=== PATIENT | female | born 1990 | race Caucasian/White ===

== ENCOUNTER 2020-03-25 19:37 | Emergency (ER) | payer SELFPAY ==
--- NOTE | 2020-03-25 20:04 | ER Document Report ---
ED Cardiac - General Chief Complaint: Palpitations Stated Complaint: PALPITATIONS Time Seen by Provider: 03/25/20 19:47 Primary Care Provider: PRIYANKA CONTRERAS MD [ACTIVE STAFF] - Follow up as needed Notes: CHIEF COMPLAINT: Palpitations HPI: 29-year-old female presenting to the emergency department complaining of p alpitations that occurred for approximately 30 to 45 minutes. Patient was driving with her on the way to [place] and felt like her heartbeat became very fast. She states she had some shortness of breath with this. No active chest pain. Symptoms have improved at this point she does describe perioral numbness and numbness and tingling in both hands and feet bilaterally during her symptoms. No vision change or loss. No unilateral weakness. No incontinence of urine or bowel. Denies . States she has had this happen to her in the past but never for such a lengthy period of time ROS: See HPI - all other systems were reviewed and are otherwise negative Constitutional: no fever Eyes: no drainage, no blurred vision ENT: no runny nose, no sore throat Cardiovascular: + chest pain Resp: + SOB, no cough GI: no vomiting, no diarrhea, no abdominal pain : no dysuria Integumentary: no rash Allergy: no hives Musculoskeletal: no extremity pain or swelling Neurological: + numbness/tingling, no weakness MEDICATIONS: I agree with the patient medications as charted by the RN. ALLERGIES: I agree with the allergies as charted by the RN. PAST MEDICAL HISTORY/PAST SURGICAL HISTORY: Reviewed and agree as charted by RN. SOCIAL HISTORY: Reviewed and agree as charted by RN. FAMILY HISTORY: No significant familial comorbid conditions directly related to patient complaint EXAM: Reviewed vital signs as charted by RN. CONSTITUTIONAL: Alert and oriented and responds appropriately to questions. Well-appearing; well-nourished HEAD: Normocephalic; atraumatic EYES: PERRL; Conjunctivae clear, sclerae non-icteric ENT: normal nose; no rhinorrhea; moist mucous membranes; pharynx without lesions noted, no uvula edema or deviation, no tonsillar hypertrophy, phonation normal NECK: Supple without meningismus; non-tender; no cervical lymphadenopathy, no masses CARD: RRR; no murmurs, no clicks, no rubs, no gallops; symmetric distal pulses RESP: Normal chest excursion without splinting or tachypnea; breath sounds clear and equal bilaterally; no wheezes, no rhonchi, no rales, pulse oximetry 99% on room air not hypoxic ABD/GI: Normal bowel sounds; non-distended; soft, non-tender, no rebound, no guarding; no palpable organomegaly or masses. BACK: The back appears normal and is non-tender to palpation, there is no CVA tenderness EXT: Normal ROM in all joints; non-tender to palpation; no cyanosis, no effusions, no edema SKIN: Normal color for age and race; warm; dry; good turgor; no acute lesions noted NEURO: Moves all extremities equally; Motor and sensory function intact PSYCH: The patient's mood and manner are appropriate. Grooming and personal hygiene are appropriate. MDM: 29-year-old female with palpitations and sensation of her heart beating quickly this afternoon. Had some perioral numbness and tingling as well as in bilateral hands and feet. Symptoms are improving or resolved at this time. Will check basic screening labs, EKG normal sinus rhythm without ectopy. TRAVEL OUTSIDE OF THE [place] IN LAST 30 DAYS: No - Related Data Allergies/Adverse Reactions: No Known Allergies Allergy (Unverified 03/04/12 13:02) Home Medications: none Past Medical History - Social History Smoking Status: Never Smoker Frequency of alcohol use: None Drug Abuse: None Family History: Reviewed & Not Pertinent Patient has homicidal ideation: No - Immunizations Hx Diphtheria, Pertussis, Tetanus Vaccination: Yes - 02/05/13 Physical Exam - Vital signs Vitals: Temp 98.4 F 03/25/20 19:37 Course - Re-evaluation Re-evalutation: 03/25/20 20:40 I manually rechecked the patient's blood pressure myself. Patient's blood pressure was 142/98. Still mildly elevated. I spoke with the patient at length about hypertension. Awaiting her lab results. 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 She has no chest pain. She does state that the symptoms lasted for over half an hour when they occurred. Discussed with Dr. heart attending. Will obtain second troponin likely a troponin leak if patient truly had SVT, she has absolutely no chest discomfort no EKG changes to suggest ACS at this time. Discussed this at length with the patient who is in agreement with this plan 03/25/20 23:[address] heart attending, troponin is essentially unchanged she remains completely pain-free at this time will refer to Dr. Waggoner cardiology for further follow-up of her blood pressure and possible arrhythmia - Vital Signs Vital signs: Temp Pulse Resp BP Pulse Ox 98.3 F 106 H 16 142/98 H 98 03/25/20 19:53 03/25/20 19:53 03/25/20 19:53 03/25/20 20:42 03/25/20 19:53 - Laboratory Result Diagrams: 03/25/20 19:47 03/25/20 19:47 Laboratory results interpreted by me: 03/25/20 19:47 BUN 23 H Glucose 131 H Discharge - Discharge Clinical Impression: Palpitations Hypertension Qualifiers: Hypertension type: unspecified Qualified Code(s): I10 - Essential (primary) hypertension Condition: Stable Disposition: HOME, SELF-CARE Additional Instructions: Obtain a blood pressure cuff for the wrist to use at home. Measure your blood pressure twice daily and record her findings bring to a primary care provider or to cardiology to further evaluate your blood pressure as discussed. Call the cardiology office tomorrow to discuss further follow-up in the office for reevaluation of the possible arrhythmia or abnormal heart rate. It is possible that you will need to wear a Holter monitor. Return for any recurrent symptoms or onset of chest pain or shortness of breath Referrals: PRIYANKA CONTRERAS MD [ACTIVE STAFF] - Follow up as needed JANEEN WAGGONER MD [ACTIVE PROVISIONAL STAFF] - Follow up as needed
[2020-03-25 20:08] LABS: ABSOLUTE EOSINOPHILS # (AUTO) 0.1 10^3/uL (0.0-0.6); ABSOLUTE LYMPHOCYTES (AUTO) 2.7 10^3/uL (0.5-4.7); ABSOLUTE MONOCYTES (AUTO) 0.6 10^3/uL (0.1-1.4); ABSOLUTE NEUT (AUTO) 4.4 10^3/uL (1.7-8.2); BASOPHILS % (AUTO) 0.6 % (0-2); EOSINOPHILS % (AUTO) 1.3 % (0-6); HEMATOCRIT 43.2 % (36.0-47.0); HEMOGLOBIN 15.2 g/dL (12.0-15.5); LYMPHOCYTES % (AUTO) 34.3 % (13-45); MEAN CORPUSCULAR HEMOGLOBIN 32.4 pg (27.0-33.4); MEAN CORPUSCULAR HGB CONC 35.3 g/dL (32.0-36.0); MEAN CORPUSCULAR VOLUME 92 fl (80-97); MONOCYTES % (AUTO) 7.3 % (3-13); PLATELET COUNT 219 10^3/uL (150-450); SEGMENTED NEUTROPHILS % (AUTO) 56.5 % (42-78); TOTAL CELLS COUNTED % (AUTO) 100 %; WHITE BLOOD COUNT 7.8 10^3/uL (4.0-10.5)
[2020-03-25 20:30] LABS: ALBUMIN 4.9 g/dL (3.5-5.0); ALKALINE PHOSPHATASE 83 U/L (38-126); ANION GAP 11 (5-19); ASPARTATE AMINO TRANSFERASE 26 U/L (14-36); BILIRUBIN,TOTAL 0.4 mg/dL (0.2-1.3); BLOOD UREA NITROGEN 23 mg/dL (7-20); CALCIUM 9.8 mg/dL (8.4-10.2); CARBON DIOXIDE 23 mmol/L (22-30); CHLORIDE 104 mmol/L (98-107); GLUCOSE 131 mg/dL (75-110); POTASSIUM 3.9 mmol/L (3.6-5.0); TOTAL PROTEIN 7.8 g/dL (6.3-8.2)
--- NOTE | 2020-03-25 20:47 | RADIOLOGY REPORT (SQ) ---
EXAM DESCRIPTION: X-ray, single frontal view of the chest CLINICAL HISTORY: 29 years Female, palpitations COMPARISON: None. FINDINGS: Lungs: Lungs are clear. No pneumonia or edema. No pneumothorax or pleural effusion. Mediastinum: Cardiac and mediastinal silhouette are normal. Bones: Osseous structures are normal. IMPRESSION: Unremarkable single view of the chest.
[2020-03-26 00:53] VITALS: BP 172/98
--- NOTE | 2020-03-26 08:02 | EKG REPORT ---
SEVERITY:- ABNORMAL ECG - SINUS RHYTHM PROBABLE LEFT ATRIAL ABNORMALITY LEFT VENTRICULAR HYPERTROPHY : Confirmed by: Sheela Lynn MD 26-Mar-2020 08:02:03
== END 2020-03-26 00:53 | disposition home or self-care (01) ==
LOC: ER 19:37
DX: R00.2 Palpitations (principal); I10 Essential (primary) hypertension; R06.02 Shortness of breath; R20.0 Anesthesia of skin; R07.9 Chest pain, unspecified
CPT/HCPCS: 36415; 71045; 80053; 83735; 84443; 84484; 84703; 85025; 93005; 93010; 99285

== ENCOUNTER 2020-03-30 23:18 | Emergency (ER) | payer SELFPAY ==
[2020-03-31] MEDS ORDERED: ACETAMINOPHEN 325 MG TABLET PO ONE (00:06)
[2020-03-31] MEDS ORDERED: AMLODIPINE BESYLATE 5 MG TABLET PO ONE (04:58)
--- NOTE | 2020-03-31 05:04 | ER Document Report ---
ED Hip Pain/Injury - General Chief Complaint: Hip Pain Stated Complaint: HIP PAIN Time Seen by Provider: 03/31/20 04:46 Notes: CHIEF COMPLAINT: Intermittent back pain over the last for 5 days HPI: 29-year-old obese female presenting to the emergency department complaining of continued hypertension as well as cramping discomfort in the bilateral posterior thighs over the last 5 days. Patient states she was seen here 5 days ago for palpitations. Did not have any chest pain or shortness of breath per se. Patient states that she has had intermittent headaches when she wakes up in the morning and has noticed her blood pressure is still high with a diastolic above 100. She has no active chest pain or shortness of breath. No abdominal pain. Does report some occasional low back discomfort along with the cramping in the posterior thighs. No incontinence of urine or bowel. No ripping or tearing sensation. Patient states that Tylenol tonight did make her symptoms improved significantly ROS: See HPI - all other systems were reviewed and are otherwise negative Constitutional: no fever Eyes: no drainage, no blurred vision ENT: no runny nose, no sore throat Cardiovascular: no chest pain Resp: no SOB, no cough GI: no vomiting, no diarrhea, no abdominal pain : no dysuria Integumentary: no rash Allergy: no hives Musculoskeletal: + extremity pain or swelling Neurological: no numbness/tingling, no weakness MEDICATIONS: I agree with the patient medications as charted by the RN. ALLERGIES: I agree with the allergies as charted by the RN. PAST MEDICAL HISTORY/PAST SURGICAL HISTORY: Reviewed and agree as charted by RN. SOCIAL HISTORY: Reviewed and agree as charted by RN. FAMILY HISTORY: No significant familial comorbid conditions directly related to patient complaint EXAM: Reviewed vital signs as charted by RN. CONSTITUTIONAL: Alert and oriented and responds appropriately to questions. Well-appearing; well-nourished HEAD: Normocephalic; atraumatic EYES: PERRL; Conjunctivae clear, sclerae non-icteric ENT: normal nose; no rhinorrhea; moist mucous membranes; pharynx without lesions noted, no uvula edema or deviation, no tonsillar hypertrophy, phonation normal NECK: Supple without meningismus; non-tender; no cervical lymphadenopathy, no masses CARD: RRR; no murmurs, no clicks, no rubs, no gallops; symmetric distal pulses RESP: Normal chest excursion without splinting or tachypnea; breath sounds clear and equal bilaterally; no wheezes, no rhonchi, no rales, pulse oximetry 98% on room air not hypoxic ABD/GI: Normal bowel sounds; non-distended; soft, non-tender, no rebound, no guarding; no palpable organomegaly or masses. BACK: The back appears normal and is minimally tender over the lumbar musculatu re and upper gluteal region on palpation and range of motion, there is no CVA tenderness EXT: Normal ROM in all joints; non-tender to palpation; no cyanosis, no effusions, no edema SKIN: Normal color for age and race; warm; dry; good turgor; no acute lesions noted NEURO: Moves all extremities equally; Motor and sensory function intact PSYCH: The patient's mood and manner are appropriate. Grooming and personal hygiene are appropriate. MDM: 29-year-old female presenting with cramping in the posterior thighs intermittently over the last for 5 days. She has noticed continued hypertension since her prior visit to the emergency department states she cannot get into cardiology for another week. Patient was seen 5 days ago for possible palpitations or SVT. She has no chest pain or shortness of breath with this. No abdominal pain or palpable masses in the abdomen. Patient did have normal creatinine on last visit we will recheck given her continued hypertension. Will start patient on Norvasc given the hypertension will have nursing recheck her vital signs here and notify me of abnormalities. TRAVEL OUTSIDE OF THE [place] IN LAST 30 DAYS: No - Related Data Allergies/Adverse Reactions: No Known Allergies Allergy (Verified 03/30/20 23:59) Past Medical History - Social History Smoking Status: Current Every Day Smoker Frequency of alcohol use: Heavy Drug Abuse: None Family History: Reviewed & Not Pertinent Patient has homicidal ideation: No - Immunizations Hx Diphtheria, Pertussis, Tetanus Vaccination: Yes - 02/05/13 Physical Exam - Vital signs Vitals: Temp Pulse Resp BP Pulse Ox 97.7 F 102 H 18 162/115 H 99 03/30/20 23:22 03/30/20 23:22 03/30/20 23:22 03/30/20 23:22 03/30/20 23:22 Course - Re-evaluation Re-evalutation: 03/31/20 06:19 Patient blood pressure is much improved. She has no abdominal pain or chest pain on exam at this time. Her lab work does not show significant abnormalities. Will discharge home keep patient on Norvasc 2.5 mg, she will continue to check her pressures follow-up with cardiology and PCP. Discussed with Dr. Daugherty, attending during work up 03/31/20 06:20 Patient urine did show moderate white cells but there were significant squamous epithelial cells as well likely a dirty catch. We will add urine culture. She has no fever and no dysuria - Vital Signs Vital signs: Temp Pulse Resp BP Pulse Ox 97.7 F 102 H 18 152/94 H 99 03/30/20 23:59 03/30/20 23:22 03/30/20 23:22 03/31/20 05:26 03/30/20 23:22 - Laboratory Result Diagrams: 03/31/20 05:31 03/31/20 05:31 Laboratory results interpreted by me: 03/31/20 05:31 Urine Protein 30 H Ur Leukocyte Esterase SMALL H Discharge - Discharge Clinical Impression: Bilateral thigh pain HTN (hypertension) Qualifiers: Hypertension type: essential hypertension Qualified Code(s): I10 - Essential (primary) hypertension Condition: Stable Disposition: HOME, SELF-CARE Instructions: High Blood Pressure, Requiring Treatment ([facility]) Additional Instructions: Continue to check your blood pressures as previously discussed. Take the Norvasc as prescribed you are already given today's dose. Follow-up with cardiology and PCP for reevaluation of symptoms call for appointment. Return for any concerns Prescriptions: Amlodipine Besylate [Norvasc 2.5 mg Tablet] 2.5 mg PO DAILY #30 tablet
[2020-03-31 05:53] LABS: ABSOLUTE EOSINOPHILS # (AUTO) 0.1 10^3/uL (0.0-0.6); ABSOLUTE LYMPHOCYTES (AUTO) 2.8 10^3/uL (0.5-4.7); ABSOLUTE MONOCYTES (AUTO) 0.7 10^3/uL (0.1-1.4); ABSOLUTE NEUT (AUTO) 3.8 10^3/uL (1.7-8.2); BASOPHILS % (AUTO) 0.5 % (0-2); EOSINOPHILS % (AUTO) 1.7 % (0-6); HEMATOCRIT 42.8 % (36.0-47.0); HEMOGLOBIN 14.9 g/dL (12.0-15.5); LYMPHOCYTES % (AUTO) 37.7 % (13-45); MEAN CORPUSCULAR HEMOGLOBIN 32.5 pg (27.0-33.4); MEAN CORPUSCULAR HGB CONC 34.9 g/dL (32.0-36.0); MEAN CORPUSCULAR VOLUME 93 fl (80-97); MONOCYTES % (AUTO) 9.9 % (3-13); PLATELET COUNT 228 10^3/uL (150-450); RED BLOOD COUNT 4.58 10^6/uL (3.72-5.28); SEGMENTED NEUTROPHILS % (AUTO) 50.2 % (42-78); TOTAL CELLS COUNTED % (AUTO) 100 %; WHITE BLOOD COUNT 7.5 10^3/uL (4.0-10.5)
[2020-03-31 06:04] LABS: APPEARANCE,URINE CLOUDY; BILIRUBIN,URINE NEGATIVE (NEGATIVE); COLOR,URINE AMBER; GLUCOSE, URINE NEGATIVE (NEGATIVE); KETONES,URINE NEGATIVE (NEGATIVE); LEUKOCYTE ESTERASE,URINE SMALL (NEGATIVE); NITRITE,URINE NEGATIVE (NEGATIVE); PROTEIN,URINE 30 mg/dL (NEGATIVE); URINE SPECIFIC GRAVITY 1.028; UROBILINOGEN,URINE NEGATIVE mg/dL (<2.0)
[2020-03-31 06:10] LABS: ALBUMIN 4.9 g/dL (3.5-5.0); ALKALINE PHOSPHATASE 67 U/L (38-126); ANION GAP 8 (5-19); ASPARTATE AMINO TRANSFERASE 30 U/L (14-36); BILIRUBIN,TOTAL 0.6 mg/dL (0.2-1.3); BLOOD UREA NITROGEN 13 mg/dL (7-20); CALCIUM 9.6 mg/dL (8.4-10.2); CARBON DIOXIDE 25 mmol/L (22-30); CHLORIDE 104 mmol/L (98-107); GLUCOSE 93 mg/dL (75-110); POTASSIUM 4.5 mmol/L (3.6-5.0); TOTAL PROTEIN 7.6 g/dL (6.3-8.2)
[2020-03-31 06:35] VITALS: BP 137/89
== END 2020-03-31 06:33 | disposition home or self-care (01) ==
LOC: ER 23:18
DX: M79.652 Pain in left thigh (principal); M79.651 Pain in right thigh; I10 Essential (primary) hypertension; M54.9 Dorsalgia, unspecified; R51 Headache; F17.200 Nicotine dependence, unspecified, uncomplicated
CPT/HCPCS: 36415; 80053; 81001; 84703; 85025; 87086; 99283